=== PATIENT | female | born 1960 | race African-American/Black ===

== ENCOUNTER 2024-04-04 10:31 | Emergency (ER) | payer MEDICAID, MEDICARE ==
[~2024-04-04] VITALS: Ht 165.1 cm; Wt 62.0 kg
[2024-04-04 11:16] VITALS: O2SAT 99
[2024-04-04] MEDS ORDERED: SULF1TAB48 MT (11:32)
[2024-04-04] MEDS ORDERED: CEPH500C2 MT (11:32)
[2024-04-04] MEDS ORDERED: CLIN-194 MT (12:17)
[2024-04-04 12:18] VITALS: BP 137/82; PULSE 60; RESP 12; TEMP 37.11408; O2SAT 96
== END 2024-04-04 12:20 | disposition home or self-care (01) ==
LOC: ER 10:41
DX: L02.31 Cutaneous abscess of buttock (principal); I10 Essential (primary) hypertension; Z88.6 Allergy status to analgesic agent; Z79.899 Other long term (current) drug therapy
CPT/HCPCS: 99283

== ENCOUNTER 2024-08-02 08:01 | Emergency (ER) | payer MEDICARE, MEDICAID ==
[~2024-08-02] VITALS: Ht 167.6 cm; Wt 74.0 kg
[~2024-08-02 08:01] MED LIST: CEPH500C2 MT; CLIN-194 MT
[2024-08-02 08:16] VITALS: O2SAT 100
[2024-08-02 08:46] LABS: CLARITY URINE CLEAR (CLEAR); COLOR URINE YELLOW (YELLOW); GLUCOSE URINE NEGATIVE (NEGATIVE); KETONES URINE NEGATIVE (NEGATIVE); LEUKOCYTE ESTERASE URINE 2+ (NEGATIVE); NITRITE URINE POSITIVE (NEGATIVE); OCCULT BLOOD URINE TRACE (NEGATIVE); PROTEIN URINE NEGATIVE (NEGATIVE); SPECIFIC GRAVITY URINE 1.017 (1.005-1.030); UROBILINOGEN URINE 0.2 E.U./dL (0.2-1.0)
[2024-08-02 08:48] LABS: BASOPHILS % 0.4 % (0.0-2.0); EOSINOPHILS % 2.5 % (0.0-5.0); HEMATOCRIT. 41.3 % (36.0-48.0); HEMOGLOBIN. 13.8 g/dL (12.0-16.0); LYMPHOCYTES % 27.3 % (20.0-50.0); MEAN CORPUSCULAR HEMOGLOBIN 31.7 pg (28.0-32.0); MEAN CORPUSCULAR HGB CONC 33.3 g/dL (31.0-37.0); MEAN CORPUSCULAR VOLUME 95.3 fL (81.0-99.0); MEAN PLATELET VOLUME 8.5 fl (7.4-10.4); MONOCYTES % 5.5 % (2.0-8.0); NEUTROPHILS % 64.3 % (40.0-76.0); PLATELET 238 x1000/uL (130-400); RED BLOOD CELL COUNT 4.34 mill/uL (4.2-5.4); RED CELL DISTRIBUTION WIDTH 15.4 % (11.6-14.6); WHITE BLOOD COUNT 5.9 x1000/uL (4.5-11.0)
[2024-08-02 08:57] LABS: CARBON DIOXIDE 32 mEq/L (21-32); CHLORIDE 108 mEq/L (98-107); POTASSIUM 4.3 mEq/L (3.5-5.1); SODIUM 146 mEq/L (136-145)
[2024-08-02 08:58] LABS: CALCIUM 9.7 mg/dL (8.7-10.4)
[2024-08-02 09:03] LABS: GLUCOSE 85 mg/dL (70-105); TROPONIN I HIGH SENSITIVITY 22 ng/L (3.0-34); UREA NITROGEN BLOOD 11 mg/dL (9-23)
[2024-08-02 09:04] LABS: ALANINE AMINOTRANSFERASE 17 IU/L (10-49); ASPARTATE AMINOTRANSFERASE 22 IU/L (<34)
[2024-08-02 09:05] LABS: ALBUMIN 4.2 g/dL (3.2-4.8); BILIRUBIN TOTAL 0.4 mg/dL (0.1-1.0); PROTEIN TOTAL 7.6 g/dL (6.0-8.3)
[2024-08-02 09:14] LABS: BILIRUBIN DIRECT < 0.1 mg/dL (<=3.0)
[2024-08-02 09:33] LABS: WBC URINE 25-50 /hpf (0-2)
[2024-08-02 09:34] LABS: BACTERIA URINE 4+; SQUAMOUS EPITHELIAL CELL URINE 1+ /lpf (RARE/1+); YEAST URINE NONE SEEN
[2024-08-02] MEDS: ONDANSETRON HCL 4MG TABLET PO ONE (09:40)
[2024-08-02] MEDS: SODIUM CHLORIDE 0.9% 1,000 ML IV ONE (10:27)
[2024-08-02] MEDS: LORATADINE 10MG TABLET PO SCH (10:35)
[2024-08-02] MEDS ORDERED: ONDA4TAB50 MT (11:36)
[2024-08-02] MEDS ORDERED: TOPUD MT (11:36)
[2024-08-02] MEDS ORDERED: CEPH500C2 MT (11:36)
[2024-08-02] MEDS: CEFTRIAXONE 1GM/50ML 50 ML IV ONE (11:55)
[2024-08-02 12:20] VITALS: BP 152/102; PULSE 78; RESP 18; TEMP 37.2; O2SAT 100
== END 2024-08-02 12:21 | disposition home or self-care (01) ==
LOC: ER 08:18
DX: N39.0 Urinary tract infection, site not specified (principal); R55 Syncope and collapse; I10 Essential (primary) hypertension; Z88.1 Allergy status to other antibiotic agents; Z88.2 Allergy status to sulfonamides; Z88.6 Allergy status to analgesic agent
CPT/HCPCS: 99284; 96365; 80076; 80048; 81003; 83690; 85025; 87086; 84484; 36415; 93005; Q0162; J0696; J7030